=== PATIENT | female | born 1990 | race Caucasian/White ===

== ENCOUNTER 2018-03-17 23:47 | Emergency (ER) | payer BC, SELFPAY ==
[2018-03-18] MEDS ORDERED: LORazepam 2 MG/ML VIAL ONE (00:37)
[2018-03-18] MEDS ORDERED: NA CHLORIDE 0.9% 1,000 ML ONE (00:37)
[2018-03-18 00:54] LABS: Absolute Lymphocytes (CBC) 3.2 K/uL (0.7-4.9); Absolute Monocytes 0.6 K/uL (0.1-1.3); Absolute Neutrophil 3.8 K/uL (1.8-8.0); Eosinophils % 3.9 % (0-4.4); Hematocrit 40.9 % (36.0-45.0); Lymphocytes % 39.5 % (15.3-44.8); MCH 30.1 pg (27.0-35.0); MCV 87.7 fL (80-100); MPV 8.3 fL (7.6-11.3); Monocytes % 7.9 % (3.3-12.3); RBC Red Blood Cell Count 4.67 M/uL (3.86-4.86)
[2018-03-18 01:01] LABS: Protime INR 0.98
[2018-03-18 01:06] LABS: Urine Blood 1+ (NEG); Urine Glucose NEGATIVE (NEG); Urine Protein NEGATIVE (NEG); Urine pH 5.5 (5.0-7.0)
[2018-03-18 01:09] LABS: Bicarbonate 25 mEq/L (21-31); Glucose Level 133 mg/dL (65-120); Potassium 3.1 mEq/L (3.6-5.0); Sodium Level 138 mEq/L (135-145)
[2018-03-18 01:16] LABS: ALT/SGPT 14 IU/L (10-60); AST/SGOT 19 IU/L (10-42); Albumin 4.3 g/dL (3.2-5.5); Alkaline Phosphatase 74 IU/L (42-121); BUN Blood Urea Nitrogen 15 mg/dL (6-20); Bilirubin Direct < 0.1 mg/dL (0-0.2); Bilirubin Total 0.3 mg/dL (0.3-1.2); Creatine Phosphokinase 61 IU/L (22-269); Magnesium 1.7 mg/dL (1.8-2.5); Protein, Total 7.3 g/dL (6.0-8.3)
[2018-03-18 01:46] LABS: Barbiturates NEGATIVE; Benzodiazepines NEGATIVE; Cocaine NEGATIVE; METHAMPHETAM NEGATIVE (NEGATIVE); Opiates NEGATIVE; Phencyclidine NEGATIVE; THC Cannibis NEGATIVE
[2018-03-18] MEDS ORDERED: POTASSIUM CL SA 10 MEQ TAB PO ONE (02:39)
--- NOTE | 2018-03-18 02:42 | EDPHYS ---
Physician Documentation [facility] Name: Trista Coughlin Age: 27 yrs Sex: Female : 1990 Arrival Date: 03/17/2018 Time: 23:49 Bed 28 Private MD: Herensto Corona B ED Physician Michael Lange HPI: 03/18 02:36 This 27 yrs old Female presents to ER via Ambulatory with complaints of BODY wa SHAKES, ANXIETY. 02:36 The patient or guardian reports chest pain that is located primarily in the substernal wa area. The pain does not radiate. Associated signs and symptoms: Pertinent positives: dizziness, lightheadedness, nausea. The chest pain is described as aching. Duration: The patient or guardian reports a single episode, that is still ongoing. Modifying factors: The symptoms are alleviated by nothing. the symptoms are aggravated by nothing. Severity of pain: At its worst the pain was mild in the emergency department the pain is unchanged. The patient has experienced similar episodes in the past, a few times, states has h/o anxiety. The patient has not recently seen a physician. 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 - Social history:: Smoking status: Patient/guardian denies using tobacco, Patient uses alcohol, street drugs. - Ebola Screening: : No symptoms or risks identified at this time. - Family history:: not pertinent. - Hospitalizations: : No recent hospitalization is reported. ROS: 02:38 Constitutional: Negative for fever, chills, and weight loss, Eyes: Negative for injury, wa pain, redness, and discharge, ENT: Negative for injury, pain, and discharge, Neck: Negative for injury, pain, and swelling, Respiratory: Negative for shortness of breath, cough, wheezing, and pleuritic chest pain, Back: Negative for injury and pain, : Negative for injury, bleeding, discharge, and swelling, MS/Extremity: Negative for injury and deformity, Skin: Negative for injury, rash, and discoloration, Neuro: Negative for headache, weakness, numbness, tingling, and seizure, Psych: Negative for depression, anxiety, suicide ideation, homicidal ideation, and hallucinations. 02:38 Cardiovascular: Positive for chest pain, Negative for edema, orthopnea, palpitations. 02:38 Abdomen/GI: Positive for diarrhea, Negative for nausea, vomiting. 02:38 All other systems are negative. Exam: 02:38 Constitutional: This is a well developed, well nourished patient who is awake, alert, wa and in no acute distress. Head/Face: Normocephalic, atraumatic. Eyes: Pupils equal round and reactive to light, extra-ocular motions intact. Lids and lashes normal. Conjunctiva and sclera are non-icteric and not injected. Cornea within normal limits. Periorbital areas with no swelling, redness, or edema. ENT: Nares patent. No nasal discharge, no septal abnormalities noted. Tympanic membranes are normal and external auditory canals are clear. Oropharynx with no redness, swelling, or masses, exudates, or evidence of obstruction, uvula midline. Mucous membranes moist. Neck: Trachea midline, no thyromegaly or masses palpated, and no cervical lymphadenopathy. Supple, full range of motion without nuchal rigidity, or vertebral point tenderness. No Meningismus. Chest/axilla: Normal chest wall appearance and motion. Nontender with no deformity. No lesions are appreciated. Cardiovascular: Regular rate and rhythm with a normal S1 and S2. No gallops, murmurs, or rubs. Normal PMI, no JVD. No pulse deficits. Respiratory: Lungs have equal breath sounds bilaterally, clear to auscultation and percussion. No rales, rhonchi or wheezes noted. No increased work of breathing, no retractions or nasal flaring. Abdomen/GI: Soft, non-tender, with normal bowel sounds. No distension or tympany. No guarding or rebound. No evidence of tenderness throughout. Back: No spinal tenderness. No costovertebral tenderness. Full range of motion. Skin: Warm, dry with normal turgor. Normal color with no rashes, no lesions, and no evidence of cellulitis. MS/ Extremity: Pulses equal, no cyanosis. Neurovascular intact. Full, normal range of motion. Neuro: Awake and alert, GCS 15, oriented to person, place, time, and situation. Cranial nerves II-XII grossly intact. Motor strength 5/5 in all extremities. Sensory grossly intact. Cerebellar exam normal. Normal gait. Psych: Awake, alert, with orientation to person, place and time. Behavior, mood, and affect are within normal limits. Vital Signs: 00:11 BP 122 / 91; Pulse 89; Resp 18 S; Temp 98.4(O); Pulse Ox 99% on R/A; Weight 54.43 kg bb (R); Height 5 ft. 2 in. (157.48 cm) (R); Pain 0/10; 01:30 BP 119 / 69; Pulse 97; Resp 17; Pulse Ox 99% on R/A; rk2 02:52 BP 99 / 73; Pulse 93; Resp 17; Pulse Ox 100% on R/A; rk2 00:11 Body Mass Index 21.95 (54.43 kg, 157.48 cm) MDM: 03/17 23:[address] 03/18 02:39 Differential diagnosis: anxiety? will r/o acute cardiac problem. reassess. Data ct reviewed: vital signs, nurses notes, lab test result(s), EKG. Test interpretation: by ED physician or midlevel provider: EKG: HR 97. nml EKG nml CXR. labs nml except K of 3.1. Response to treatment: the patient's symptoms have markedly improved after treatment. 03/18 00:17 Order name: Basic Metabolic Panel; Complete Time: 02:35 ct 03/18 00:17 Order name: CBC with Diff; Complete Time: 02:36 ct 03/18 00:17 Order name: CPK; Complete Time: 02:36 ct 03/18 00:17 Order name: LFT's; Complete Time: 02:36 ct 03/18 00:17 Order name: Magnesium; Complete Time: 02:36 ct 03/18 00:17 Order name: PT-INR; Complete Time: 02:36 ct 03/18 00:17 Order name: Troponin (emerg Dept Use Only); Complete Time: 02:36 ct 03/18 00:17 Order name: XRAY Chest (1 view) ct 03/18 00:17 Order name: Urine Drug Screen; Complete Time: 02:34 ct 03/18 00:57 Order name: Urine Dipstick--Ancillary (enter results); Complete Time: 02:36 [facility] 03/18 00:57 Order name: Urine --Ancillary (enter results); Complete Time: 02:34 [facility] 03/18 00:17 Order name: Urine Test (obtain specimen); Complete Time: 00:50 ct 03/18 00:17 Order name: Cardiac monitoring; Complete Time: 01:07 ct 03/18 00:17 Order name: EKG - Nurse/Tech; Complete Time: 01:44 ct 03/18 00:17 Order name: IV Saline Lock; Complete Time: 00:50 ct 03/18 00:17 Order name: Labs collected and sent; Complete Time: 00:40 ct 03/18 00:17 Order name: O2 Per Protocol; Complete Time: 00:40 ct 03/18 00:17 Order name: O2 Sat Monitoring; Complete Time: 00:40 ct 03/18 00:17 Order name: Urine Dipstick-Ancillary (obtain specimen); Complete Time: 00:50 ct Administered Medications: 00:49 Drug: NS 0.9% 1000 ml Route: IV; Rate: 1 bolus; Site: right antecubital; rk2 01:30 Follow up: Response: No adverse reaction; IV Status: Completed infusion rk2 00:49 Drug: Ativan 0.5 mg Route: IVP; Site: right antecubital; rk2 02:50 Follow up: Response: No adverse reaction rk2 02:50 Drug: Potassium Chloride 40 mEq Route: PO; rk2 02:50 Follow up: given \T\ DC rk2 Disposition: 03/18/18 02:41 Discharged to Home. Impression: anxiety, chest pain. - Condition is Stable. - Discharge Instructions: Nonspecific Chest Pain, Generalized Anxiety Disorder. - Medication Reconciliation Form, Thank You Letter, Antibiotic Education, Prescription Opioid Use form. - Follow up: Private Physician; When: 1 - 2 days; Reason: Re-evaluation by your physician. - Problem is new. - Symptoms have improved. - Notes: see your doctor for further evaluation as discussed. return for rapidly worsening concerns Signatures: Dispatcher [employer] EDMS Earline Hobbs RN RN bb Michael Lange MD MD wa Kidder, Rhonda, RN RN rk2 Corrections: (The following items were deleted from the chart) 02:53 02:41 03/18/2018 02:41 Discharged to Home. Impression: anxiety; chest pain. Condition rk2 is Stable. Forms are Medication Reconciliation Form, Thank You Letter, Antibiotic Education, Prescription Opioid Use. Follow up: Private Physician; When: 1 - 2 days; Reason: Re-evaluation by your physician. Problem is new. Symptoms have improved. wa
--- NOTE | 2018-03-18 02:42 | ER ---
Nurse's Notes [facility] Name: Trista Coughlin Age: 27 yrs Sex: Female : 1990 Arrival Date: 03/17/2018 Time: 23:49 Bed 28 Private MD: Hernesto Corona B Diagnosis: anxiety;chest pain Presentation: 03/18 00:09 Presenting complaint: Patient states: she started having symptoms of anxiety approx 30 bb mins ago with chest pain, light-headedness, blurry vision, as well as diarrhea, nausea, shakes pt states spouse was vomiting as well. Transition of care: patient was not received from another setting of care. Onset of symptoms was March 18, 2018. Risk Assessment: Do you want to hurt yourself or someone else? Patient reports no desire to harm self or others. Initial Sepsis Screen: Does the patient meet any 2 criteria? No. Patient's initial sepsis screen is negative. Does the patient have a suspected source of infection? No. Patient's initial sepsis screen is negative. Care prior to arrival: None. 00:09 Method Of Arrival: Ambulatory bb 00:09 Acuity: SHERRIE 3 bb Triage Assessment: 01:15 General: Appears in no apparent distress. well groomed, well developed, well nourished, rk2 Behavior is calm, cooperative. Pain: Complains of pain in chest. Neuro: Level of Consciousness is alert, obeys commands, Oriented to person, place, time, situation. Cardiovascular: Rhythm is sinus rhythm. Respiratory: Airway is patent Respiratory effort is even, unlabored, Respiratory pattern is regular, symmetrical. Derm: Skin is pink, warm \T\ dry. 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 - Social history:: Smoking status: Patient/guardian denies using tobacco, Patient uses alcohol, street drugs. - Ebola Screening: : No symptoms or risks identified at this time. - Family history:: not pertinent. - Hospitalizations: : No recent hospitalization is reported. Screenin:15 Abuse screen: Denies threats or abuse. Nutritional screening: No deficits noted. rk2 Tuberculosis screening: No symptoms or risk factors identified. Fall Risk None identified. Assessment: 02:15 Reassessment: Patient appears in no apparent distress at this time. No changes from rk2 previously documented assessment. Patient and/or family updated on plan of care and expected duration. Pain level reassessed. Family \T\ bedside... pt. voiced no needs \T\ this time. Vital Signs: 00:11 BP 122 / 91; Pulse 89; Resp 18 S; Temp 98.4(O); Pulse Ox 99% on R/A; Weight 54.43 kg bb (R); Height 5 ft. 2 in. (157.48 cm) (R); Pain 0/10; 01:30 BP 119 / 69; Pulse 97; Resp 17; Pulse Ox 99% on R/A; rk2 02:52 BP 99 / 73; Pulse 93; Resp 17; Pulse Ox 100% on R/A; rk2 00:11 Body Mass Index 21.95 (54.43 kg, 157.48 cm) ED Course: 03/17 23:49 Patient arrived in ED. al2 23:50 Hernesto Corona MD is Private Physician. al2 23:55 Allie Victoria RN is Primary Nurse. rk2 23:56 Michael Lange MD is Attending Physician. pr 03/18 00:11 Triage completed. bb 00:11 Arm band placed on Patient placed in an exam room, on a stretcher, on pulse oximetry. bb Family accompanied patient. 00:44 X-ray completed. Portable x-ray completed in exam room. Patient tolerated procedure kp1 well. 00:47 XRAY Chest (1 view) In Process Unspecified. EDMS 01:15 Patient has correct armband on for positive identification. Placed in gown. Bed in low rk2 position. Call light in reach. 02:52 No provider procedures requiring assistance completed. IV discontinued. rk2 Administered Medications: 00:49 Drug: NS 0.9% 1000 ml Route: IV; Rate: 1 bolus; Site: right antecubital; rk2 01:30 Follow up: Response: No adverse reaction; IV Status: Completed infusion rk2 00:49 Drug: Ativan 0.5 mg Route: IVP; Site: right antecubital; rk2 02:50 Follow up: Response: No adverse reaction rk2 02:50 Drug: Potassium Chloride 40 mEq Route: PO; rk2 02:50 Follow up: given \T\ DC rk2 Intake: Outcome: 02:41 Discharge ordered by . yanira 02:52 Discharged to home ambulatory. rk 02:52 Condition: good 02:52 Discharge instructions given to patient. 02:53 Patient left the ED. rk2 Signatures: Dispatcher [employer] EDEarline Ag RN RN bb Poole, Kathy kp1 Michael Lange MD MD wa Love, Erika al2 Allie Victoria RN RN rk2
[2018-03-18 02:56] VITALS: TEMP 98.4
[2018-03-18 02:58] VITALS: BP 99/73; O2SAT 100
--- NOTE | 2018-03-18 09:00 | RAD REPORT ---
EXAM DESCRIPTION: RAD - Chest Single View - 03/18/2018 12:47 am CLINICAL HISTORY: Chest pain, shortness of breath COMPARISON: December 2016 TECHNIQUE: AP portable chest image was obtained 0040 hours . FINDINGS: Lungs are clear. Heart and vasculature are normal. No measurable pleural effusion and no p neumothorax. No gross bony abnormality seen. No acute aortic findings suspected. IMPRESSION: No acute cardiopulmonary process. No significant interval change.
--- NOTE | 2018-03-18 12:44 | EKG ---
Test Date: 2018-03-18 Test Time: 01:38:14 Machine Pack Assembler: VALERIA MEASUREMENT RESULTS: Intervals: Rate: 97 WA: 140 QRSD: 68 QT: 348 QTc: 441 [place]: P: 41 WA: 140 QRS: 65 T: 52 INTERPRETIVE STATEMENTS: Normal sinus rhythm Normal ECG No previous ECG available for comparison Electronically Signed On 03-18-18 12:43:27 CDT by Ventura Giles
== END 2018-03-18 02:53 | disposition home or self-care (01) ==
LOC: ER 23:47
DX: F41.9 Anxiety disorder, unspecified (principal)
CPT/HCPCS: 36415; 71045; 80048; 80076; 80307; 81003; 81025; 82550; 83735; 84484; 85025; 85610; 93005; 96361; 96374; 99284; J7030

== ENCOUNTER 2018-05-30 05:57 | Day surgery (SDC) | payer OTHER ==
[2018-05-29 16:02] LABS: Absolute Lymphocytes (CBC) 1.7 K/uL (0.7-4.9); Absolute Monocytes 0.6 K/uL (0.1-1.3); Absolute Neutrophil 5.8 K/uL (1.8-8.0); Basophils % 0.4 % (0-1.3); Hematocrit 39.8 % (36.0-45.0); Lymphocytes % 20.7 % (15.3-44.8); MCH 30.3 pg (27.0-35.0); MCV 87.1 fL (80-100); MPV 8.7 fL (7.6-11.3); Monocytes % 7.2 % (3.3-12.3); RBC Red Blood Cell Count 4.57 M/uL (3.86-4.86)
[2018-05-29 16:12] LABS: Protime INR 1.08
[2018-05-29 16:51] LABS: Urine Appearance CLEAR; Urine Bilirubin NEGATIVE (NEG); Urine Blood NEGATIVE (NEG); Urine Color YELLOW; Urine Glucose NEGATIVE (NEG); Urine Protein NEGATIVE (NEG); Urine Specific Gravity 1.015 (1.005-1.030); Urine Urobilinogen 0.2 mg/dL (0.2-1.0); Urine pH 6.5 (5.0-7.0)
[2018-05-29 16:58] LABS: Urine Microscopic Reflex ORDER UMIC
[2018-05-29 17:00] LABS: Urine Bacteria <20 /HPF (<20); Urine Culture Reflex Order NOT NEEDED; Urine Mucus 2+ /HPF (NONE SEEN); Urine RBC <5 /HPF (NONE SEEN)
--- NOTE | 2018-05-29 19:13 | PREOPHP ---
Date of Admission: 05/29/2018 A 27-year-old primigravida, at about 12 weeks gestation, but intrauterine demise documented by no heart tones on ultrasound and declining HCG levels. She is Rh positive, therefore will not need RhoGAM. Options given including expectant management, but the patient is insistent on proceedin g with D and C. Pros and cons discussed. Infection, blood loss, anesthetic complications, injury to bladder, bowel, ureter, postoperative complications, clots in legs, pneumonia discussed. The patien t knows fully well this does not constitute all the possible problems that could occur during or foll owing surgery. Family History: Noncontributory. Allergies: SHE HAS NO ALLERGIES. 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 Medications: No medications prior to admission other than vitamins, which she has discontinued. Social History: She does not smoke. Physical Examination: HEENT: Clear. Pupils equal, round, and reactive to light and accommodation. Conjunctivae well perf used. No oral, lingual, or buccal lesions. Chest and Lungs: Clear. Heart: Without murmurs, thrills, heaves, or rubs. Breasts: Not examined. Abdomen: Soft. Uterus is about 10 weeks size. nontender. Both adnexa clear. The cervix is minima l dilation. We inserted laminaria tent and packing without major difficulties. She will proceed with D and C tomorrow morning. We will also give her doxycycline to be taken twice a day for 3 days after the procedure, Cytotec 100 mcg to be taken every 4 hours 4 doses. Full discussion. Significant other in attendance . MARYSE/JANET Voice ID: [id number]
[~2018-05-30 05:57] MED LIST: CEFAZOLIN/SWI 1gm 1 GM/10 ML SYR IVP SCH; METHYLERGONOVINE 0.2 MG TAB PO PRN; METHYLERGONOVINE 0.2MG/ML AMP IM PRN; OXYTOCIN 10 UNIT/ML ML IV ONE; OXYTOCIN/LR 20 UNIT/1,000 ML BAG IV SCH; Ringers Lactate 1,000 ML IV ONE
[2018-05-30] MEDS ORDERED: CEFAZOLIN/SWI 1gm 1 GM/10 ML SYR ONE (06:17)
[2018-05-30] MEDS ORDERED: OXYTOCIN 10 UNIT/ML ML IV ONE (07:02)
[2018-05-30] MEDS ORDERED: SILVER NITRATE 1 APPL TOP ONE (07:03)
[2018-05-30] MEDS ORDERED: MIDAZOLAM HCL 2 MG/2 ML INJ ONE ×2 (07:08→07:37)
[2018-05-30] MEDS ORDERED: LIDOCAINE 1% MPF 5 ML VIAL ONE (07:08)
[2018-05-30] MEDS ORDERED: FENTANYL CITR 100 MCG/2 ML ONE ×2 (07:08→07:14)
[2018-05-30] MEDS ORDERED: PROPOFOL 200 MG/20 ML VIAL IV ONE (07:08)
[2018-05-30] MEDS ORDERED: DEXAMETHASONE 10 MG/ML VIAL ONE ×2 (07:14→07:34)
[2018-05-30] MEDS ORDERED: ONDANSETRON HCL 40 MG/20 ML VIAL ONE (07:15)
[2018-05-30] MEDS ORDERED: KETOROLAC 30 MG/ML INJ ONE (07:34)
[2018-05-30] MEDS ORDERED: KETAMINE HCL 500 MG/5 ML VIAL ONE (07:37)
[2018-05-30] MEDS: METHYLERGONOVINE 0.2MG/ML AMP IM ONE ×2 (07:38→07:45)
[2018-05-30] MEDS ORDERED: Mastisol Adhesive Liq ONE (07:46)
[2018-05-30] MEDS ORDERED: NA CHLORIDE 0.9% 500 ML ONE (08:38)
[2018-05-30 08:39] VITALS: TEMP 97.2; O2SAT 100
[2018-05-30] MEDS ORDERED: MEPERIDINE HCL 25 MG/0.5 ML ONE (09:05)
[2018-05-30 10:13] VITALS: BP 117/70
--- NOTE | 2018-05-30 11:34 | OP ---
Surgeon: Hernesto Corona MD A 27-year-old, primigravida, first trimester missed . Rh positive, therefore no RhoGAM neede d. Full preoperative counseling concerning procedure and possible complications including infection, blood loss, anesthetic complications, injury to bladder, bowel, ureter, postoperative complications, clots in legs, and pneumonia. The patient knows fully well this does not constitute all the possibl e problems that could occur during or following surgery. Procedure In Detail: General anesthesia, endotracheal intubation. Time-out performed. Laminaria te nt and packs placed the evening prior were removed. Cervical os was dilated after tenaculum was plac ed on the anterior cervical lip. There was seen to be an obstruction about 3 cm into the cervix. Th e uterus is actually retroverted, I think this is the problem. Curved dilators were used. An 8 mm c urved suction curette was used to evacuate the obviously necrotic intrauterine contents. The suction curettement was followed by sharp curettement, a second suction and a second sharp curettement, and a third and final suction curettement. A 0.2 mg of Methergine IM as well as IV drip Pitocin and 1 g of Ancef had been given prior to the procedure. Estimated blood loss 250 cc, plus or minus 50 cc. T he patient tolerated all procedures well. She was transferred back to the recovery room in good cond ition. Final Diagnoses: First trimester missed , suction and sharp curettage for uterine evacuation . MARYSE/JANET Voice ID: [id number] Report ID: [id number]
--- NOTE | 2018-05-30 11:34 | DS ---
Date of Discharge: 05/30/2018 Hospital Course: The patient underwent suction and sharp curettage for uterine evacuation. She is R h positive, will not need RhoGAM. Estimated blood loss 250 cc, plus or minus 50 cc. The patient rivera l be observed for 2 hours and then dismissed. She has a prescription for doxycycline to be taken twi ce a day for 3 days for prophylaxis, Cytotec to be taken 100 mcg every 4 hours for 4 doses to report any temperature elevation of 100 degrees or greater, severe pain, heavy bleeding, or any other type o f abnormalities. If no problems, she is to report back to my office next week for followup. Final Diagnoses: First trimester missed , suction and sharp curettage, general anesthesia. MARYSE/JANET Voice ID: [id number] Report ID: [id number]
== END 2018-05-30 10:04 | disposition home or self-care (01) ==
LOC: OR 05:57
PROVIDERS: ATTEND Specialist
PROC: 10D17ZZ Extraction of Products of Conception, Retained, Via Natural or Artificial Opening (ICD-10-PCS; principal; 2018-05-30 07:30)
DX: O02.1 Missed abortion (principal)
CPT/HCPCS: 36415; 81003; 81015; 85025; 85610; 85730; 86850; 86900; 86901; 88305; J0690; J1100; J2175; J2210; J2250; J2405; J2590; J3010

== ENCOUNTER 2019-03-14 06:37 | Emergency (ER) | payer BC, OTHER ==
--- NOTE | 2019-03-14 07:33 | EDPHYS ---
Physician Documentation [facility] Name: Trista Coughlin Age: 28 yrs Sex: Female : 1990 Arrival Date: 03/14/2019 Time: 06:38 Bed 7 Private MD: ED Physician Ever Hoffman HPI: 03/14 08:04 This 28 yrs old Female presents to ER via Ambulatory with complaints of jr8 Congestion, Headache, Sore Throat. 08:04 Onset: The symptoms/episode began/occurred acutely, 2 day(s) ago. Associated signs and jr8 symptoms: Pertinent positives: cough. Modifying factors: The patient symptoms are alleviated by nothing, the patient symptoms are aggravated by nothing. The patient has not experienced similar symptoms in the past. The patient has not recently seen a physician. 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 - Social history:: Smoking status: Patient/guardian denies using tobacco, Patient/guardian denies using alcohol, street drugs, IV drugs. - Ebola Screening: : Patient negative for fever greater than or equal to 101.5 degrees Fahrenheit, and additional compatible Ebola Virus Disease symptoms Patient denies exposure to infectious person Patient denies travel to an Ebola-affected area in the 21 days before illness onset. ROS: 08:04 Eyes: Negative for injury, pain, redness, and discharge, Neck: Negative for injury, jr8 pain, and swelling, Cardiovascular: Negative for chest pain, palpitations, and edema, Abdomen/GI: Negative for abdominal pain, nausea, vomiting, diarrhea, and constipation, Back: Negative for injury and pain, MS/Extremity: Negative for injury and deformity, Skin: Negative for injury, rash, and discoloration. 08:04 Constitutional: Positive for body aches. 08:04 ENT: Positive for rhinorrhea, sinus congestion, sore throat. 08:04 Respiratory: Positive for cough, Negative for dyspnea on exertion, shortness of breath, sputum production, wheezing. 08:04 Neuro: Positive for headache. Exam: 08:04 Eyes: Pupils equal round and reactive to light, extra-ocular motions intact. Lids and jr8 lashes normal. Conjunctiva and sclera are non-icteric and not injected. Cornea within normal limits. Periorbital areas with no swelling, redness, or edema. ENT: Nares patent. No nasal discharge, no septal abnormalities noted. Tympanic membranes are normal and external auditory canals are clear. Oropharynx with no redness, swelling, or masses, exudates, or evidence of obstruction, uvula midline. Mucous membranes moist. Neck: Trachea midline, no thyromegaly or masses palpated, and no cervical lymphadenopathy. Supple, full range of motion without nuchal rigidity, or vertebral point tenderness. No Meningismus. Cardiovascular: Regular rate and rhythm with a normal S1 and S2. No gallops, murmurs, or rubs. Normal PMI, no JVD. No pulse deficits. Respiratory: Lungs have equal breath sounds bilaterally, clear to auscultation and percussion. No rales, rhonchi or wheezes noted. No increased work of breathing, no retractions or nasal flaring. Abdomen/GI: Soft, non-tender, with normal bowel sounds. No distension or tympany. No guarding or rebound. No evidence of tenderness throughout. Back: No spinal tenderness. No costovertebral tenderness. Full range of motion. Skin: Warm, dry with normal turgor. Normal color with no rashes, no lesions, and no evidence of cellulitis. MS/ Extremity: Pulses equal, no cyanosis. Neurovascular intact. Full, normal range of motion. Neuro: Awake and alert, GCS 15, oriented to person, place, time, and situation. Cranial nerves II-XII grossly intact. Motor strength 5/5 in all extremities. Sensory grossly intact. Cerebellar exam normal. Normal gait. Vital Signs: 06:53 BP 114 / 73; Pulse 104; Resp 20; Temp 98.7(O); Pulse Ox 99% on R/A; Weight 56.7 kg (R); ao Height 5 ft. 2 in. (157.48 cm) (R); Pain 5/10; 06:53 Body Mass Index 22.86 (56.70 kg, 157.48 cm) ao MDM: 06:52 Patient medically screened. jr8 07:31 Data reviewed: vital signs, nurses notes, lab test result(s), and as a result, I will jr8 discharge patient. Data interpreted: Pulse oximetry: on room air is 99 %. Interpretation: normal. Counseling: I had a detailed discussion with the patient and/or guardian regarding: the historical points, exam findings, and any diagnostic results supporting the discharge/admit diagnosis, lab results, the need for outpatient follow up, a family practitioner, to return to the emergency department if symptoms worsen or persist or if there are any questions or concerns that arise at home. 03/14 06:58 Order name: Strep; Complete Time: 07:25 03/14 06:58 Order name: Influenza Screen (a \T\ B); Complete Time: 07:31 8 03/14 07:24 Order name: Throat Culture EDMS Administered Medications: No medications were administered Disposition: 03/14/19 07:32 Discharged to Home. Impression: Viral infection, unspecified. - Condition is Stable. - Discharge Instructions: Viral Respiratory Infection. - Prescriptions for Prednisone 20 mg Oral Tablet - take 1 tablet by ORAL route once daily for 5 days; 5 tablet. Tessalon Perles 100 mg Oral Capsule - take 1 capsule by ORAL route every 8 hours As needed; 15 capsule. Guaifenesin AC 10- 100 mg/5 mL Oral Liquid - take 10 milliliter by ORAL route every 4 hours As needed; 240 milliliter. - Medication Reconciliation Form, Thank You Letter, Antibiotic Education, Prescription Opioid Use form. - Follow up: Private Physician; When: 5 - 6 days; Reason: Recheck today's complaints, Continuance of care, Re-evaluation by your physician. - Problem is new. - Symptoms have improved. Addendum: 03/17/2019 01:59 Co-signature as Attending Physician, Ever Hoffman MD. g s Signatures: Dispatcher [employer] Deysi Schwab RN RN iw Roszak, Josh, PA PA jr8 Lars Vaughan RN RN ao Starr, Gregory, MD MD gs Corrections: (The following items were deleted from the chart) 03/14 07:42 07:32 03/14/2019 07:32 Discharged to Home. Impression: Viral infection, unspecified. iw Condition is Stable. Forms are Medication Reconciliation Form, Thank You Letter, Antibiotic Education, Prescription Opioid Use. Follow up: Private Physician; When: 5 - 6 days; Reason: Recheck today's complaints, Continuance of care, Re-evaluation by your physician. Problem is new. Symptoms have improved. jr8
--- NOTE | 2019-03-14 07:33 | ER ---
Nurse's Notes [facility] Name: Trista Coughlin Age: 28 yrs Sex: Female : 1990 Arrival Date: 03/14/2019 Time: 06:38 Bed 7 Private MD: Diagnosis: Viral infection, unspecified Presentation: 03/14 06:49 Presenting complaint: Patient states: Congestion, headache, body aches and sore throat ao for three days. Patient denies fever nausea or diarrhea. Transition of care: patient was not received from another setting of care. Onset of symptoms was March 11, 2019 at 06:00. Risk Assessment: Do you want to hurt yourself or someone else? Patient reports no desire to harm self or others. Initial Sepsis Screen: Does the patient meet any 2 criteria? No. Patient's initial sepsis screen is negative. Does the patient have a suspected source of infection? No. Patient's initial sepsis screen is negative. Care prior to arrival: None. 06:49 Method Of Arrival: Ambulatory ao 06:49 Acuity: SHERRIE 4 ao TASTE TESTER: 06:53 LMP 03/12/2019 ao Historical: - Allergies: 06:52 NKDA; ao - Home Meds: 06:52 None [Active]; ao - PMHx: 06:52 Anxiety; Asthma; ao - PSHx: 06:52 D \T\ C; ao - Immunization history:: Adult Immunizations up to date. - Social history:: Smoking status: Patient/guardian denies using tobacco, Patient/guardian denies using alcohol, street drugs, IV drugs. - Ebola Screening: : Patient negative for fever greater than or equal to 101.5 degrees Fahrenheit, and additional compatible Ebola Virus Disease symptoms Patient denies exposure to infectious person Patient denies travel to an Ebola-affected area in the 21 days before illness onset. Screenin:54 Abuse screen: Denies threats or abuse. Denies injuries from another. Nutritional ao screening: No deficits noted. Tuberculosis screening: No symptoms or risk factors identified. Fall Risk None identified. Assessment: 06:55 General: Appears in no apparent distress. comfortable, Behavior is calm, cooperative, ao appropriate for age. Pain: Complains of pain in sore throat Pain does not radiate. Pain currently is 5 out of 10 on a pain scale. Neuro: Level of Consciousness is awake, alert, obeys commands, Oriented to person, place, time, situation, Appropriate for age Moves all extremities. Full function Speech is normal, Facial symmetry appears normal, Pupils are PERRLA. Cardiovascular: Capillary refill < 3 seconds. Respiratory: Reports cough that is productive, Airway is patent Respiratory effort is even, unlabored, Respiratory pattern is regular, symmetrical, Breath sounds are clear. GI: No signs and/or symptoms were reported involving the gastrointestinal system. Abdomen is flat, non-distended. : No signs and/or symptoms were reported regarding the genitourinary system. EENT: No signs and/or symptoms were reported regarding the EENT system. Derm: No signs and/or symptoms reported regarding the dermatologic system. Musculoskeletal: No signs and/or symptoms reported regarding the musculoskeletal system. Vital Signs: 06:53 BP 114 / 73; Pulse 104; Resp 20; Temp 98.7(O); Pulse Ox 99% on R/A; Weight 56.7 kg (R); ao Height 5 ft. 2 in. (157.48 cm) (R); Pain 5/10; 06:53 Body Mass Index 22.86 (56.70 kg, 157.48 cm) ao ED Course: 06:38 Patient arrived in ED. es 06:51 Triage completed. ao 06:52 Aries Boggs PA is PHCP. jr8 06:52 Ever Hoffman MD is Attending Physician. jr8 06:54 Arm band placed on right wrist. Patient placed in an exam room, on a stretcher, on ao pulse oximetry, Patient notified of wait time. 06:57 Patient has correct armband on for positive identification. Pulse ox on. NIBP on. ao 07:40 No provider procedures requiring assistance completed. iw 07:40 Patient did not have IV access during this emergency room visit. iw 07:42 Deysi Richardson, RN is Primary Nurse. iw Administered Medications: No medications were administered Outcome: 07:32 Discharge ordered by . jr8 07:41 Discharged to home ambulatory, with family. iw 07:41 Condition: good 07:41 Discharge instructions given to patient, Instructed on discharge instructions, follow up and referral plans. Demonstrated understanding of instructions, follow-up care. 07:42 Patient left the ED. iw Signatures: Kirstie Hernandez Deysi Spence, RN RN Aries De La Garza PA PA jr8 Lars Vaughan RN RN ao Corrections: (The following items were deleted from the chart) 11:02 11:02 No provider procedures requiring assistance completed. kathe archuleta
[2019-03-14 07:48] VITALS: BP 114/73; TEMP 98.7; O2SAT 99
== END 2019-03-14 07:42 | disposition home or self-care (01) ==
LOC: ER 06:37
DX: B34.9 Viral infection, unspecified (principal)
CPT/HCPCS: 87070; 87081; 87804; 99283

== ENCOUNTER 2025-06-04 09:27 | Emergency (ER) | payer BC, OTHER ==
[2025-06-04 09:58] LABS: Absolute Lymphocytes (CBC) 2.0 K/uL (0.7-4.9); Hematocrit 40.6 % (36.0-45.0); Hemoglobin 14.1 g/dL (12.0-15.0); MCH 29.8 pg (27.0-35.0); MCHC 34.7 g/dL (32.0-36.0); MCV 85.9 fL (80-100); MPV 8.3 fL (7.6-11.3); Nucleated RBC Absolute Count 0.0 (0-0); Nucleated Red Blood Cells % 0.1 % (0-0); RBC Red Blood Cell Count 4.72 M/uL (3.86-4.86); White Blood Count 9.80 thou/uL (4.3-10.9)
[2025-06-04 10:04] LABS: Urine Culture Reflex Order NOT NEEDED; Urine Microscopic Reflex YN ORDER UMIC; Urine WBC Clump Rare /HPF (None Seen); Urine Yeast (Budding) Trace /HPF (None Seen)
[2025-06-04 10:21] LABS: Anion Gap 7.4 mEq/L (5.0-15.0); BUN Blood Urea Nitrogen 9.0 mg/dL (7-18); Glucose Level 88.0 mg/dL (74-106); Potassium 3.4 mEq/L (3.5-5.1)
[2025-06-04 10:36] LABS: HCG, Quantitative 128313.0 mIU/mL (1-3)
--- NOTE | 2025-06-04 11:23 | RAD REPORT ---
EXAMINATION: US FIRST TRIMESTER TRANSVAGINAL WITH DOPPLER CLINICAL INDICATION: with vaginal bleeding TECHNIQUE: Real-time obstetrical ultrasonography of the maternal pelvis and first trimester was performed transvaginally. Color and spectral Doppler evaluation of the ovaries was performed. COMPARISON: No prior exam. FINDINGS: The uterus measures 11 x 6 x 6 cm. A gestational sac is present within the endometrium. Within this is a pole crown rump length 2. 9 cm. Cardiac activity 170 bpm. Placenta is anterior. Tiny subchorionic bleed. Neither ovary seen secondary to overlying bowel gas. Right and left adnexa unremarkable No significant free fluid IMPRESSION: Single live intrauterine with an estimated gestational age 9 weeks 5 days ESSIE January 02 6 Tiny subchorionic bleed
--- NOTE | 2025-06-04 11:27 | ER ---
Nurse's Notes [facility] Name: Trista Lind Age: 34 yrs Sex: Female : 1990 Arrival Date: 06/04/2025 Time: 09:27 Bed 5 Private MD: Diagnosis: Other hemorrhage in early Presentation: 06/04 09:32 Chief complaint: Patient states: vaginal spotting and cramping x 1 day. Pt reports she ss is 9 weeks and 3 days . Coronavirus screen: Client denies travel out of the [place] in the last 14 days. Ebola Screen: Patient denies exposure to infectious person. Patient denies travel to an Ebola-affected area in the 21 days before illness onset. Initial Sepsis Screen: Does the patient meet any 2 criteria? No. Patient's initial sepsis screen is negative. Does the patient have a suspected source of infection? No. Patient's initial sepsis screen is negative. Risk Assessment: Do you want to hurt yourself or someone else? Patient reports no desire to harm self or others. Onset of symptoms was June 03, 2025. 09:32 Method Of Arrival: Ambulatory ss 09:32 Acuity: SHERRIE 3 ss TRACK MAN: 09:33 LMP 03/27/2025, unknown ss 10:47 3, Full Term 1, 1, unknown dr5 Historical: - Allergies: 09:33 NKDA; ss - Home Meds: 09:33 None [Active]; ss - PMHx: 09:33 Anxiety; Asthma; ss - PSHx: 09:33 D\T\C (Asthma); section; ss - Immunization history:: Adult Immunizations unknown. - Infectious Disease History:: Denies. - Social history:: Smoking status: Patient denies any tobacco usage or history of. Screenin:54 [facility] ED Fall Risk Assessment (Adult) History of falling in the last 3 months, ar8 including since admission No falls in past 3 months (0 pts) Confusion or Disorientation No (0 pts) Intoxicated or Sedated No (0 pts) Impaired Gait No (0 pts) Mobility Assist Device Used No (0 pt) Altered Elimination No (0 pt) Score/Fall Risk Level 0 - 2 = Low Risk. Abuse screen: Denies threats or abuse. Nutritional screening: No deficits noted. Tuberculosis screening: No symptoms or risk factors identified. Assessment: 09:54 General: Appears uncomfortable, Behavior is crying, Patient is crying and arguing with ar8 her spouse on her cell phone. Pain: Complains of pain in suprapubic area, right lower quadrant and left lower quadrant Quality of pain is described as crampy. Neuro: No deficits noted. Level of Consciousness is awake, alert, obeys commands, Oriented to person, place, time, situation. Cardiovascular: No deficits noted. Respiratory: No deficits noted. Airway is patent Respiratory effort is even, unlabored, Respiratory pattern is regular, symmetrical. GI: Reports cramping. : Reports vaginal bleeding that is spotty, since 06-02-25. 10:44 Reassessment: Patient appears in no apparent distress at this time. Patient is alert, bp oriented x 3, equal unlabored respirations, skin warm/dry/pink. Vital Signs: 09:32 Pulse 113; Resp 18; Pulse Ox 98% on R/A; Weight 68.04 kg; Height 5 ft. 2 in. ; ss 09:34 BP 132 / 84; Temp 98.9(O); ss 10:44 BP 117 / 83; Pulse 100; Resp 16; Pulse Ox 100% ; bp 11:32 BP 119 / 90; Pulse 89; Resp 16; Pulse Ox 100% ; bp 09:32 Body Mass Index 27.44 (68.04 kg, 157.48 cm) ss ED Course: 09:28 Patient arrived in ED. mr 09:29 Pichardo Doanl[facility] 09:29 Paul Harper DO is Attending Physician. dr5 09:31 Arden Delgado, LIGIA is Primary Nurse. bp 09:33 Triage completed. ss 09:33 Arm band placed on right wrist. ss 09:49 No provider procedures requiring assistance completed. Inserted saline lock: 22 gauge ar8 antecubital area, using aseptic technique. Blood collected. Flushed with 10 mL NS. 09:53 Abo/rh Typing Sent. ar8 09:53 UA Rfx Kali Cult if indicated Sent. ar8 09:53 Basic Metabolic Panel Sent. ar8 09:53 CBC with Diff Sent. ar8 09:53 Quantitative Hcg Sent. ar8 09:54 Bed in low position. Call light in reach. Side rails up X 1. Provided Education on: ar8 plan of care. 10:35 US Transvaginal Ob In Process Unspecified. EDMS 11:33 IV discontinued, intact, bleeding controlled, No redness/swelling at site. Pressure bp dressing applied. Administered Medications: No medications were administered Medication: 09:54 VIS not applicable for this client. ar8 Outcome: 11:26 Discharge ordered by . dr5 11:33 Discharged to home ambulatory, with family, bp 11:33 Condition: stable 11:33 Discharge instructions given to patient, Instructed on discharge instructions, follow up and referral plans. Demonstrated understanding of instructions, follow-up care, 11:45 Patient left the ED. Signatures: Dispatcher [employer] EDAL Sugey Pyle, Reg Reg mr Fay Abel, RN RN Arden Delgado RN RN Donal Manjarrez, DRUM SEALER-C DRUM SEALER-Cdr5 Buzz Nieves RN RN ar8 Corrections: (The following items were deleted from the chart) 09:34 09:33 LMP 2024, unknown [facility] 09:34 09:32 Chief complaint: Patient states: vaginal spotting and cramping x 1 day [facility]
--- NOTE | 2025-06-04 11:27 | EDPHYS ---
Physician Documentation [facility] Name: Trista Lind Age: 34 yrs Sex: Female : 1990 Arrival Date: 06/04/2025 Time: 09:27 Bed 5 Private MD: ED Physician Paul Harper HPI: 06/04 10:47 This 34 yrs old Female presents to ER via Ambulatory with complaints of dr5 Vaginal Bleeding, + Preg <12wks, Abdominal Cramping. 10:47 The patient presents to the emergency department with vaginal bleeding, described as dr5 spotting, with no clots. The estimated gestational age is 9 weeks. Patient is a 31-year-old female with history of anxiety, asthma coming in with vaginal bleeding and spotting that started yesterday. Patient reports that she has lower abdominal cramping with spotting and wants to make sure the baby is okay. Patient denies any blood clots. Patient denies chest pain, upper abdominal pain, nausea, vomiting, diarrhea, or fever.. 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 - Infectious Disease History:: Denies. - Social history:: Smoking status: Patient denies any tobacco usage or history of. ROS: 10:47 Constitutional: as per hpi dr5 Exam: 10:47 Constitutional: This is a well developed, well nourished patient who is awake, alert, dr5 and in no acute distress. Head/Face: Normocephalic, atraumatic. Eyes: Pupils equal round and reactive to light, extra-ocular motions intact. Lids and lashes normal. Conjunctiva and sclera are non-icteric and not injected. Cornea within normal limits. Periorbital areas with no swelling, redness, or edema. Neck: Trachea midline, no thyromegaly or masses palpated, and no cervical lymphadenopathy. Supple, full range of motion without nuchal rigidity, or vertebral point tenderness. No Meningismus. Chest/axilla: Normal chest wall appearance and motion. Nontender with no deformity. No lesions are appreciated. Cardiovascular: Regular rate and rhythm with a normal S1 and S2. Normal PMI, no JVD. No pulse deficits. Respiratory: Lungs have equal breath sounds bilaterally, clear to auscultation. No rales, rhonchi or wheezes noted. No increased work of breathing, no retractions or nasal flaring. Back: No spinal tenderness. No costovertebral tenderness. Full range of motion. Skin: Warm, dry with normal turgor. Normal color with no rashes, no lesions, and no evidence of cellulitis. MS/ Extremity: Pulses equal, no cyanosis. Neurovascular intact. Full, normal range of motion. Neuro: Awake and alert, GCS 15, oriented to person, place, time, and situation. Cranial nerves II-XII grossly intact. Motor strength 5/5 in all extremities. Sensory grossly intact. Cerebellar exam normal. Normal gait. 10:47 Abdomen/GI: Inspection: abdomen appears normal, Bowel sounds: normal, Palpation: mild abdominal tenderness, in the right lower quadrant and left lower quadrant, Vital Signs: 09:32 Pulse 113; Resp 18; Pulse Ox 98% on R/A; Weight 68.04 kg; Height 5 ft. 2 in. ; ss 09:34 BP 132 / 84; Temp 98.9(O); ss 10:44 BP 117 / 83; Pulse 100; Resp 16; Pulse Ox 100% ; bp 11:32 BP 119 / 90; Pulse 89; Resp 16; Pulse Ox 100% ; bp 09:32 Body Mass Index 27.44 (68.04 kg, 157.48 cm) ss MDM: 09:29 Medical Screening Exam initiated dr5 10:47 ED course: Patient coming in with vaginal bleeding. Will evaluate with blood dr5 work for anemia, Rh status, kidney function, and urinary tract infection. Will also get ultrasound to evaluate for ectopic , subchorionic hemorrhage, or threatened miscarriage. 11:40 Differential diagnosis: threatened Ab, inevitable Ab, complete Ab, retained Ab, septic dr5 Ab, missed Ab, Subchorionic hemorrhage. Data reviewed: vital signs, nurses notes, lab test result(s), Beta HCG: CBC, white blood cell count, hemoglobin, hematocrit, platelets, electrolytes, sodium, potassium, chloride, serum bicarbonate, BUN, creatinine, serum glucose, radiologic studies, ultrasound. Consideration of Admission/Observation Escalation of care including admission/observation considered. Considered admission if patient found to have an ectopic . I considered the following discharge prescriptions or medication management in the emergency department I discussed and recommended Over The Counter medications, Medications were administered in the Emergency Department. See MAR. Care significantly affected by the following chronic conditions: Anxiety, asthma. Care significantly affected by the following Social Determinants of Health: Poor access to healthcare and/or lack of insurance, Poor access to transportation, Problems related to employment. Counseling: I had a detailed discussion with the patient and/or guardian regarding the historical points, exam findings, and any diagnostic results supporting the discharge/admit diagnosis, the presence of at least one elevated blood pressure reading (>120/80) during this emergency department visit, lab results, radiology results, the need for outpatient follow up, for definitive care, a family practitioner, an OB/Gyne specialist, to return to the emergency department if symptoms worsen or persist or if there are any questions or concerns that arise at home. Special discussion: I discussed with the patient/guardian in detail that at this point there is no indication for admission to the hospital. It is understood, however, that if the symptoms persist or worsen the patient needs to return immediately for re-evaluation. Based on the history and exam findings, there is no indication for further emergent testing or inpatient evaluation. I discussed with the patient/guardian the need to see the OB Gyne specialist for further evaluation of the symptoms. ED course: All labs and ultrasound printed and given to patient. Patient found to have small subchorionic hemorrhage. Patient reports she is feeling better. Will have patient follow-up with OB next Sunday as scheduled. All questions answered. Strict ER precautions given.. 06/04 09:35 Order name: Abo/rh Typing; Complete Time: 10:33 06/04 09:35 Order name: Basic Metabolic Panel; Complete Time: 10:36 06/04 09:35 Order name: CBC with Diff; Complete Time: 10:06/04 09:35 Order name: Quantitative Hcg; Complete Time: 10:36 06/04 09:35 Order name: UA Rfx Kali Cult if indicated; Complete Time: 10:16 06/04 09:35 Order name: US Transvaginal Ob; Complete Time: 11:25 14 09:35 Order name: IV Saline Lock; Complete Time: :53 dr5 06/04 09:35 Order name: Labs collected and sent; Complete Time: dr5 06/04 09:35 Order name: NPO; Complete Time: dr5 Administered Medications: No medications were administered Disposition: 19:22 I was immediately available on-site in the Emergency Department for consultation in the ms3 care of the patient. Disposition Summary: 06/04/25 11:26 Discharge Ordered Notes: Location: Home dr5 Condition: Stable dr5 Diagnosis - Other hemorrhage in early dr5 Followup: dr5 - With: Emergency Department - When: As needed - Reason: Worsening of condition Followup: dr5 - With: Private Physician - When: 1 - 2 days - Reason: Recheck today's complaints, Continuance of care, Re-evaluation by your physician Discharge Instructions: - Discharge Summary Sheet dr5 - Vaginal Bleeding During , First Trimester dr5 - Subchorionic Hematoma dr5 Forms: - Work release form bc6 - Medication Reconciliation Form dr5 - Patient Portal Instructions dr5 - Leadership Thank You Letter dr5 Signatures: Dispatcher [employer] EDMS Fay Abel, RN RN ss Paul Harper, DO ms3 Donal Pichardo, OPTIONS ADVISOR-C OPTIONS ADVISOR-Cdr5 Buzz Nieves, RN RN ar8 Corrections: (The following items were deleted from the chart) 09:36 09:36 ABO/RH TYPING+BB.LAB.BRZ ordered. EDMS EDMS 09:36 09:36 BASIC METABOLIC PANEL+C.LAB.BRZ ordered. EDMS EDMS 09:36 09:36 CBC+H.LAB.BRZ ordered. EDMS EDMS 09:36 09:36 QUANTITATIVE HCG+C.LAB.BRZ ordered. EDMS EDMS 09:36 09:36 UA Rfx Kali Cult if indicated+U.LAB.BRZ ordered. EDMS EDMS 09:36 09:36 Transvaginal Ob+US.RAD.BRZ ordered. EDMS EDMS
[2025-06-04 11:57] VITALS: TEMP 98.9
[2025-06-04 11:59] VITALS: O2SAT 100
[2025-06-04 12:00] VITALS: BP 119/90
== END 2025-06-04 11:45 | disposition home or self-care (01) ==
LOC: ER 09:27
DX: O20.8 Other hemorrhage in early pregnancy (principal); Z3A.09 9 weeks gestation of pregnancy
CPT/HCPCS: 36415; 76817; 80048; 81001; 84702; 85025; 86900; 86901; 99284